=== PATIENT | female | born 1930 | race Caucasian/White ===

== ENCOUNTER 2016-10-05 08:53 | Emergency (ER) | payer MEDICARE, OTHER ==
--- NOTE | 2016-10-05 09:12 | EDM.PDOC ---
ED HPI LOWER BACK PAIN/INJURY - General Chief Complaint: Back Pain or Injury Stated Complaint: ACHES ALL OVER Time Seen by Provider: 10/05/16 09:01 Source of Information: Reports: Patient, Family, RN, RN notes reviewed History Limitations: Reports: No limitations - History of Present Illness INITIAL COMMENTS - FREE TEXT/NARRATIVE: Patient presents to the ED at [facility] with generalized body aches, with the worse in the central to lower back. Patient states she has general aches and pains, but today it seems much worse. No chest pain. No SOB. No focal neurological deficits. Patient denies any numbness, tingling, or paresthesia of any extremity. No recent falls. No N/V/D. Symptom Onset Date: 10/05/16 Timing/Duration: Reports: Waxing/waning Location: Reports: lower, midline Quality: Reports: Pressure Severity: mild Context: Reports: chronic pain/injury. Denies: lifting, bending, fall, trauma Associated Symptoms: Reports: Denies symptoms - Related Data Allergies/ADRs: Allergies Allergy/AdvReac Type Severity Reaction Status Date / Time atorvastatin calcium Allergy Cannot Verified 10/05/16 09:10 [From Lipitor] Remember Cephalosporins Allergy Cannot Verified 10/05/16 09:10 Remember fluvastatin sodium Allergy Cannot Verified 10/05/16 09:10 [From Lescol] Remember Penicillins Allergy Cannot Verified 10/05/16 09:10 Remember Home Meds: Home Meds Metoprolol Tartrate [Lopressor] 25 mg PO Q12HR 09/18/14 [History] Pravastatin Sodium 40 mg PO DAILY 09/18/14 [History] amLODIPine [Norvasc] 5 mg PO DAILY 09/18/14 [History] Aspirin 81 mg PO BID 11/05/15 [History] Carboxymethylcellulos/Glycerin [Refresh Optive Gel Eye Drops] 1 drop EYEBOTH TID 11/05/15 [History] Dimenhydrinate 50 mg PO Q4H PRN 11/05/15 [History] Ciprofloxacin [Ciprofloxacin HCl] 250 mg PO BID #10 tablet 11/06/15 [Rx] Nystatin [Nystatin Crm] 15 gm TOP BID #1 tube 11/06/15 [Rx] Potassium Citrate [Urocit-K] 10 meq PO DAILY #30 tablet.er 11/06/15 [Rx] Past Medical History HEENT History: Reports: Cataract Cardiovascular History: Reports: High cholesterol, Hypertension, CT Gastrointestinal History: Reports: Colon polyp Genitourinary History: Reports: Acute renal failure, Chronic renal insuffiency [employer]OR [employer] History: Reports: Dysfunctional uterine bleeding, Prolapsed uterus Musculoskeletal History: Reports: Arthritis Hematologic History: Reports: Anemia Oncologic (Cancer) History: Reports: Colon - Past Surgical History HEENT Surgical History: Reports: Cataract surgery Cardiovascular Surgical History: Reports: Coronary artery bypass GI Surgical History: Reports: Appendectomy Social & Family History - Tobacco Use Smoking Status *Q: Never Smoker - Alcohol Use Days Per Week of Alcohol Use: 0 - Recreational Drug Use Recreational Drug Use: No ED ROS GENERAL - Review of Systems Review Of Systems: See Below Constitutional: Denies: fever, chills, weakness Respiratory: Denies: shortness of breath, cough Cardiovascular: Denies: Chest pain, Palpitations GI/Abdominal: Denies: Abdominal pain, Diarrhea, Nausea, Vomiting Musculoskeletal: Reports: back pain, joint pain, muscle pain, muscle stiffness Skin: Reports: no symptoms Neurological: Denies: no symptoms, dizziness, headache, numbness, paresthesia, tingling ED EXAM,LOWER BACK PAIN/INJURY - Physical Exam Exam: See Below Exam Limited By: No limitations General Appearance: alert, no apparent distress Respiratory/Chest: no respiratory distress, lungs clear, normal breath sounds Cardiovascular: regular rate, rhythm GI/Abdominal: normal bowel sounds, soft, non tender, no distention Back Exam: normal inspection. No: muscle spasm, paraspinal tenderness Neurological: alert, oriented x 3 Skin Exam: Warm, Dry, Intact, Normal color, No rash Course - Vital Signs Last Recorded V/S: Last Vital Signs Temp 35.5 C 10/05/16 08:53 Pulse 55 L 10/05/16 08:53 Resp 24 H 10/05/16 08:53 BP 130/75 10/05/16 08:53 Pulse Ox 97 10/05/16 08:53 - Orders/Labs/Meds Orders: Active Orders 24 hr Category Date Time Status Chest 2V [CR] Stat Exams 10/05/16 09:13 Taken UA W/MICROSCOPIC [URIN] Stat Lab 10/05/16 09:14 Uncollected Sodium Chloride 0.9% [Normal Saline] 1,000 ml Med 10/05/16 09:30 Active IV ASDIRECTED Sodium Chloride 0.9% [Saline Flush] Med 10/05/16 09:13 Active 10 ml FLUSH ASDIRECTED PRN Peripheral IV Insertion Adult [OM.PC] Routine Oth 10/05/16 09:13 Ordered Medication Orders Sodium Chloride (Normal Saline) 1,000 mls @ 999 mls/hr IV ASDIRECTED ALEXANDREA Last Admin: 10/05/16 09:53 Dose: 999 mls/hr Sodium Chloride (Saline Flush) 10 ml FLUSH ASDIRECTED PRN PRN Reason: Keep Vein Open Labs: Laboratory Tests 10/05/16 10/05/16 10/05/16 Range/Units 09: 09:26 09:29 WBC 7.7 (4.0-10.0) x10^3/uL RBC 4.55 (4.00-5.50) x10^6/uL Hgb 14.8 (12.0-16.0) g/dL Hct 43.4 (33.0-47.0) % MCV 95.4 H (78.0-93.0) fL MCH 32.5 H (26.0-32.0) pg MCHC 34.1 (32.0-36.0) g/dL RDW Coeff of Prem 12.2 (10.0-15.0) % Plt Count 286 (130-400) x10^3/uL Neut % (Auto) 50.1 (50.0-80.0) % Lymph % (Auto) 31.6 (25.0-50.0) % [place] % (Auto) 8.1 (2.0-11.0) % Eos % (Auto) 9.5 H (0.0-4.0) % Baso % (Auto) 0.7 (0.2-1.2) % Sodium 140 (136-145) mmol/L Potassium 4.3 (3.5-5.1) mmol/L Chloride 105 (98-107) mmol/L Carbon Dioxide 26 (21-32) mmol/L BUN 19 H (7-18) mg/dL Creatinine 1.5 H (0.55-1.02) mg/dL Est Cr Clr Drug Dosing TNP Estimated GFR (MDRD) 33 Glucose 145 H (74-106) mg/dL Calcium 9.3 (8.5-10.1) mg/dL Creatine Kinase 80 (26-192) U/L Creatine Kinase Index 1.3 (0.0-4.0) % CK-MB (CK-2) 1.0 (0.0-3.6) ng/mL POC Troponin I 0.00 (0.00-0.08) ng/mL Meds: Medications Generic Name Dose Route Start Last Admin Trade Name Freq PRN Reason Stop Dose Admin Sodium Chloride 1,000 mls @ 999 mls/hr 10/05/16 09:30 10/05/16 09:53 Normal Saline IV 999 mls/hr ASDIRECTED ALEXANDREA Administration Sodium Chloride 10 ml 10/05/16 09:13 Saline Flush FLUSH ASDIRECTED PRN Keep Vein Open Discontinued Medications Generic Name Dose Route Start Last Admin Trade Name Freq PRN Reason Stop Dose Admin Ketorolac Tromethamine 30 mg 10/05/16 09:17 10/05/16 09:54 Toradol IVPUSH 10/05/16 09:18 30 mg ONETIME ONE Administration Departure - Departure Time of Disposition: 10:17 Disposition: Home, Self-Care 01 Condition: good Clinical Impression: Back pain Qualifiers: Chronicity: acute Back pain laterality: bilateral Sciatica presence: without sciatica Instructions: Back Pain, Adult Referrals: Myra Barnes DO [Primary Care Provider] - Forms: ED Department Discharge Additional Instructions: 1. Stay well hydrated and rest 2. May use Tylenol for pain 3. See your primary as symptoms warrant - Problem List Review Problem List Initiated/Reviewed/Updated: Yes - My Orders Last 24 Hours: My Active Orders 10/05/16 09:13 Chest 2V [CR] Stat Sodium Chloride 0.9% [Saline Flush] 10 ml FLUSH ASDIRECTED PRN Peripheral IV Insertion Adult [OM.PC] Routine 10/05/16 09:14 UA W/MICROSCOPIC [URIN] Stat 10/05/16 09:30 Sodium Chloride 0.9% [Normal Saline] 1,000 ml IV ASDIRECTED - Assessment/Plan Last 24 Hours: My Active Orders 10/05/16 09:13 Chest 2V [CR] Stat Sodium Chloride 0.9% [Saline Flush] 10 ml FLUSH ASDIRECTED PRN Peripheral IV Insertion Adult [OM.PC] Routine 10/05/16 09:14 UA W/MICROSCOPIC [URIN] Stat 10/05/16 09:30 Sodium Chloride 0.9% [Normal Saline] 1,000 ml IV ASDIRECTED
[2016-10-05] MEDS ORDERED: Sodium Chloride 0.9% 10 ML Syringe FLUSH PRN (09:13)
[2016-10-05 09:18] VITALS: BP 130/75
[2016-10-05] MEDS: Sodium Chloride 0.9% 1,000 ML IV SCH (09:53)
[2016-10-05] MEDS: Ketorolac 30 MG/ML SDV IVPUSH ONE (09:54)
[2016-10-05 10:02] LABS: CHLORIDE,CL 105 mmol/L (98-107); SODIUM,NA 140 mmol/L (136-145)
== END 2016-10-05 10:37 | disposition home or self-care (01) ==
LOC: VM.ED 08:53
DX: M54.5 Low back pain (principal); E78.00 Pure hypercholesterolemia, unspecified; I25.2 Old myocardial infarction; I10 Essential (primary) hypertension; Z88.8 Allergy status to other drugs, medicaments and biological substances
CPT/HCPCS: 36415; 71020; 80048; 82550; 82553; 84484; 85025; 96361; 96374; 99284; 99284-GF; J1885; J7030

== ENCOUNTER 2020-01-13 15:29 | Emergency (ER) | payer MEDICARE, OTHER ==
[2020-01-13] MEDS ORDERED: Sodium Chloride 0.9% 10 ML Syringe FLUSH PRN (15:35)
--- NOTE | 2020-01-13 15:40 | EDM.PDOC ---
ED HPI GENERAL MEDICAL PROBLEM - General Stated Complaint: WEAKNESS Time Seen by Provider: 01/13/20 15:30 Source of Information: Reports: Patient, EMS - History of Present Illness INITIAL COMMENTS - FREE TEXT/NARRATIVE: Patient comes emergency department today from home by ambulance with complaints of lower extremity weakness. She reports over the past couple of days she has had some change in the strength of her lower extremities. Today when she was trying to get up she just feels like her legs are not there and they are not able to stand her up. She has no loss or change in her bowel or bladder habits. She has not had no recent falls or traumas. No headache. No visual disturbances. No paresthesias of her upper or lower extremities. No chest pain no shortness of breath or difficulty breathing. No weakness dizziness lightheadedness. Other than the reported weakness to her lower extremities. No cough or congestion difficulty breathing or shortness of breath. No loss of taste or smell. No abdominal pain nausea or vomiting. No hematuria dysuria or urinary frequency. No recent falls or trauma to her head neck or back. She typically ambulates with a walker and that was not enough today for her to walk. - Related Data Allergies Allergy/AdvReac Type Severity Reaction Status Date / Time atorvastatin calcium Allergy Cannot Verified 01/13/20 17:30 [From Lipitor] Remember Cephalosporins Allergy Cannot Verified 01/13/20 17:30 Remember fluvastatin sodium Allergy Cannot Verified 01/13/20 17:30 [From Lescol] Remember Penicillins Allergy Cannot Verified 01/13/20 17:30 Remember Home Meds: Home Meds Metoprolol Tartrate [Lopressor] 25 mg PO Q12HR 09/18/14 [History] Pravastatin Sodium 40 mg PO DAILY 09/18/14 [History] amLODIPine [Norvasc] 5 mg PO DAILY 09/18/14 [History] Aspirin 81 mg PO BID 11/05/15 [History] Carboxymethylcellulos/Glycerin [Refresh Optive Gel Eye Drops] 1 drop EYEBOTH TID 11/05/15 [History] Dimenhydrinate 50 mg PO Q4H PRN 11/05/15 [History] Ciprofloxacin [Ciprofloxacin HCl] 250 mg PO BID #10 tablet 11/06/15 [Rx] Nystatin [Nystatin Crm] 15 gm TOP BID #1 tube 11/06/15 [Rx] Potassium Citrate [Urocit-K] 10 meq PO DAILY #30 tablet.er 11/06/15 [Rx] Past Medical History HEENT History: Reports: Cataract Cardiovascular History: Reports: High Cholesterol, Hypertension, [place] Gastrointestinal History: Reports: Colon Polyp Genitourinary History: Reports: Acute Renal Failure, Chronic Renal Insuffiency 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 ED EXAM, NEURO - Physical Exam Exam: See Below Exam Limited By: No Limitations General Appearance: Alert, WD/WN, No Apparent Distress Eye Exam: Bilateral Eye: EOMI, PERRL Ears: Normal External Exam, Normal TMs Nose: Normal Inspection Throat/Mouth: Normal Inspection, Normal Lips, Normal Voice Head Exam: Atraumatic, Normocephalic Neck: Normal Inspection, Supple, Non-Tender Respiratory/Chest: No Respiratory Distress, Lungs Clear, Normal Breath Sounds, No Accessory Muscle Use, Chest Non-Tender Cardiovascular: Normal Peripheral Pulses, Regular Rate, Rhythm, No Edema GI/Abdominal: Normal Bowel Sounds, Soft, Non-Tender (Female) Exam: Deferred Rectal (Female) Exam: Deferred Neurological: Alert, Normal Mood/Affect, Normal Dorsiflexion, CN II-XII Intact, Normal Plantar Flexion, Normal Reflexes, No Motor/Sensory Deficits, Other (NIH is 0) DTR: 2+: Bicep (R), Bicep (L), Tricep (R), Tricep (L), Patella (R), Patella (L) , Achilles (R), Achilles (L) Back Exam: Normal Inspection, Full Range of Motion Extremities: Normal Inspection, Normal Range of Motion, No Pedal Edema, Normal Capillary Refill Psychiatric: Normal Affect, Normal Mood Skin Exam: Warm, Dry, Intact, Normal Color, No Rash EKG INTERPRETATION EKG Date: 01/13/20 Time: 15:36 Rhythm: NSR Rate (Beats/Min): 86 [place]: Normal P-Wave: Present QRS: Normal ST-T: Normal QT: Normal Course - Vital Signs Last Recorded V/S: Last Vital Signs Temp 37.3 C 01/13/20 17:54 Pulse 73 01/13/20 17:54 Resp 18 01/13/20 17:54 BP 160/69 H 01/13/20 17:54 Pulse Ox 96 01/13/20 17:54 - Orders/Labs/Meds Orders: Active Orders 24 hr Category Date Time Status EKG Documentation Completion [RC] STAT Care 01/13/20 15:36 Active CULTURE BLOOD [BC] Stat Lab 01/13/20 15:40 Received CULTURE BLOOD [BC] Stat Lab 01/13/20 15:48 Received Sodium Chloride 0.9% [Saline Flush] Med 01/13/20 15:35 Active 10 ml FLUSH ASDIRECTED PRN Blood Culture x2 Reflex Set [OM.PC] Stat Oth 01/13/20 15:36 Ordered Peripheral IV Insertion Adult [OM.PC] Stat Oth 01/13/20 15:36 Ordered Medication Orders Sodium Chloride (Saline Flush) 10 ml FLUSH ASDIRECTED PRN PRN Reason: Keep Vein Open Last Admin: 01/13/20 17:29 Dose: 10 ml Labs: Laboratory Tests 01/13/20 01/13/20 01/13/20 Range/Units 15:40 15:40 15:40 WBC 8.7 (4.0-10.0) x10^3/uL RBC 4.54 (4.00-5.50) x10^6/uL Hgb 14.7 (12.0-16.0) g/dL Hct 42.5 (33.0-47.0) % MCV 93.6 H (78.0-93.0) fL MCH 32.4 H (26.0-32.0) pg MCHC 34.6 (32.0-36.0) g/dL RDW Coeff of Prem 12.1 (10.0-15.0) % Plt Count 293 (130-400) x10^3/uL Neut % (Auto) 72.1 (50.0-80.0) % Lymph % (Auto) 16.2 L (25.0-50.0) % [place] % (Auto) 9.2 (2.0-11.0) % Eos % (Auto) 2.2 (0.0-4.0) % Baso % (Auto) 0.3 (0.2-1.2) % Sodium 135 L (136-145) mmol/L Potassium 4.1 (3.5-5.1) mmol/L Chloride 98 (98-107) mmol/L Carbon Dioxide 24 (21-32) mmol/L Anion Gap 17.1 (10-20) mmol/L BUN 11 (7-18) mg/dL Creatinine 1.2 H (0.55-1.02) mg/dL Est Cr Clr Drug Dosing TNP Estimated GFR (MDRD) 42 Glucose 122 H (74-106) mg/dL Lactic Acid 1.4 (0.4-2.0) mmol/L Calcium 8.9 (8.5-10.1) mg/dL Corrected Calcium 8.98 (8.5-10.1) mg/dL Total Bilirubin 1.4 H (0.2-1.0) mg/dL AST 26 (15-37) U/L ALT 24 (14-59) U/L Alkaline Phosphatase 112 (46-116) U/L Troponin I < 0.017 (<=0.056) ng/mL C-Reactive Protein 3.7 H (<=0.9) mg/dL Total Protein 8.2 (6.4-8.2) g/dL Albumin 3.9 (3.4-5.0) g/dL Globulin 4.3 Albumin/Globulin Ratio 0.91 Urine Color (YELLOW) Urine Appearance (CLEAR) Urine pH (5.0-8.0) Ur Specific [place] Urine Protein (NEGATIVE) mg/dL Urine Glucose (UA) (NEGATIVE) mg/dL Urine Ketones (NEGATIVE) mg/dL Urine Occult Blood (NEGATIVE) Urine Nitrite (NEGATIVE) Urine Bilirubin (NEGATIVE) Urine Urobilinogen (0.2) EU/dL Ur Leukocyte Esterase (NEGATIVE) Urine RBC (NOT SEEN) /HPF Urine WBC (NOT SEEN) /HPF Ur Squamous Epith Cells (NEGATIVE) /HPF Urine Bacteria (NEGATIVE) /HPF Urine Mucus (NEGATIVE) /LPF SARS-CoV-2 RNA (RT-PCR) (NEGATIVE) 01/13/20 01/13/20 Range/Units 16:01 17:07 WBC (4.0-10.0) x10^3/uL RBC (4.00-5.50) x10^6/uL Hgb (12.0-16.0) g/dL Hct (33.0-47.0) % MCV (78.0-93.0) fL MCH (26.0-32.0) pg MCHC (32.0-36.0) g/dL RDW Coeff of Prem (10.0-15.0) % Plt Count (130-400) x10^3/uL Neut % (Auto) (50.0-80.0) % Lymph % (Auto) (25.0-50.0) % [place] % (Auto) (2.0-11.0) % Eos % (Auto) (0.0-4.0) % Baso % (Auto) (0.2-1.2) % Sodium (136-145) mmol/L Potassium (3.5-5.1) mmol/L Chloride (98-107) mmol/L Carbon Dioxide (21-32) mmol/L Anion Gap (10-20) mmol/L BUN (7-18) mg/dL Creatinine (0.55-1.02) mg/dL Est Cr Clr Drug Dosing Estimated GFR (MDRD) Glucose (74-106) mg/dL Lactic Acid (0.4-2.0) mmol/L Calcium (8.5-10.1) mg/dL Corrected Calcium (8.5-10.1) mg/dL Total Bilirubin (0.2-1.0) mg/dL AST (15-37) U/L ALT (14-59) U/L Alkaline Phosphatase (46-116) U/L Troponin I (<=0.056) ng/mL C-Reactive Protein (<=0.9) mg/dL Total Protein (6.4-8.2) g/dL Albumin (3.4-5.0) g/dL Globulin Albumin/Globulin Ratio Urine Color Yellow (YELLOW) Urine Appearance Clear (CLEAR) Urine pH 7.0 (5.0-8.0) Ur Specific [place] 1.020 Urine Protein Negative (NEGATIVE) mg/dL Urine Glucose (UA) Negative (NEGATIVE) mg/dL Urine Ketones Negative (NEGATIVE) mg/dL Urine Occult Blood Trace-intact H (NEGATIVE) Urine Nitrite Negative (NEGATIVE) Urine Bilirubin Negative (NEGATIVE) Urine Urobilinogen 0.2 (0.2) EU/dL Ur Leukocyte Esterase Negative (NEGATIVE) Urine RBC 5-10 H (NOT SEEN) /HPF Urine WBC 0-5 (NOT SEEN) /HPF Ur Squamous Epith Cells Few H (NEGATIVE) /HPF Urine Bacteria Not seen (NEGATIVE) /HPF Urine Mucus Rare H (NEGATIVE) /LPF SARS-CoV-2 RNA (RT-PCR) Negative (NEGATIVE) Meds: Medications Generic Name Dose Route Start Last Admin Trade Name Freq PRN Reason Stop Dose Admin Sodium Chloride 10 ml 01/13/20 15:35 01/13/20 17:29 Saline Flush FLUSH 10 ml ASDIRECTED PRN Administration Keep Vein Open Discontinued Medications Generic Name Dose Route Start Last Admin Trade Name Freq PRN Reason Stop Dose Admin Lactated Ringer's 1,000 mls @ 999 mls/hr 01/13/20 17:17 01/13/20 17:27 Ringers, Lactated IV 01/13/20 18:17 999 mls/hr ONETIME ONE Administration - Radiology Interpretation Free Text/Narrative:: CXR per radiology is no evidence of pneumonia or other acute findings. - Re-Assessments/Exams Free Text/Narrative Re-Assessment/Exam: 01/13/20 18:45 Chest x-ray was negative. Urinalysis is negative. Laboratory work-up is rather unremarkable as well. Blood cultures x2 are pending. Covid test negative. 500ml LR bolus started. The fluid bolus the patient relates that she really feels back to normal. She is able to stand and ambulate without any difficulty. She has no other complaints or symptomology. She also reports that she has had a couple episodes of this in the past where her legs got very weak and she was dehydrated and after receiving some IV fluid she felt much better. She is able to get up to the bathroom and voided multiple times. Really feels back to baseline. We will discharge her home with the importance of increasing her hydration. Recheck with her primary care if anything new or worse and recheck in the emergency department over the weekend if any concerns. She is comfortable this plan and her questions are answered. Departure - Departure Time of Disposition: 18:38 Disposition: Home, Self-Care 01 Clinical Impression: Weakness, Dehydration - Discharge Information Instructions: Weakness, [id number], Dehydration, Elderly, [id number] Referrals: Myra Barnes, [Primary Care Provider] - Additional Instructions: Increase fluids over the next few days. Make position changes slowly over the next few days. Use your walker for assistance. Return to the ED if new or worsening symptoms. Follow up with your PCP early next week if any continued concerns or problems. Sepsis Event Note - Focused Exam Vital Signs: Vital Signs Temp Pulse Resp BP Pulse Ox 01/13/20 17:54 37.3 C 73 18 160/69 H 96 01/13/20 17:29 37.6 C 85 18 145/67 H 94 L 01/13/20 15:49 38.4 C H 90 18 158/67 H 95 Date Exam was Performed: 01/13/20 Time Exam was Performed: 18:38 - My Orders Last 24 Hours: My Active Orders 01/13/20 15:35 Sodium Chloride 0.9% [Saline Flush] 10 ml FLUSH ASDIRECTED PRN 01/13/20 15:36 EKG Documentation Completion [RC] STAT Blood Culture x2 Reflex Set [OM.PC] Stat Peripheral IV Insertion Adult [OM.PC] Stat 01/13/20 15:40 CULTURE BLOOD [BC] Stat 01/13/20 15:48 CULTURE BLOOD [BC] Stat - Assessment/Plan Last 24 Hours: My Active Orders 01/13/20 15:35 Sodium Chloride 0.9% [Saline Flush] 10 ml FLUSH ASDIRECTED PRN 01/13/20 15:36 EKG Documentation Completion [RC] STAT Blood Culture x2 Reflex Set [OM.PC] Stat Peripheral IV Insertion Adult [OM.PC] Stat 01/13/20 15:40 CULTURE BLOOD [BC] Stat 01/13/20 15:48 CULTURE BLOOD [BC] Stat Assessment:: Weakness Dehydration Plan: Increase fluids over the next few days. Make position changes slowly over the next few days. Use your walker for assistance. Return to the ED if new or worsening symptoms. Follow up with your PCP early next week if any continued concerns or problems.
[2020-01-13 16:19] LABS: CHLORIDE,CL 98 mmol/L (98-107); SODIUM,NA 135 mmol/L (136-145)
[2020-01-13 16:41] LABS: ANION GAP 17.1 mmol/L (10-20)
--- NOTE | 2020-01-13 17:04 | CR ---
[id number] RAD/RAD Chest PA or AP 1V EXAM: RAD Chest PA or AP 1V INDICATION: FEVER. UNKNOWN WEAKNESS. COMPARISON: 2016. DISCUSSION: Median sternotomy. Cardiomediastinal silhouette is unchanged from the prior examination. No infiltrate, effusion, pneumothorax, or edema. IMPRESSION: No evidence of pneumonia or other acute findings. Henri Bright MD 01/13/20 5400 Thank you for allowing us to participate in the care of your patient.
[2020-01-13] MEDS ORDERED: Lactated Ringers 1,000 ML IV ONE (17:17)
[2020-01-13 17:55] VITALS: BP 160/69; PULSE 73
== END 2020-01-13 18:45 | disposition home or self-care (01) ==
LOC: VM.ED 15:29
DX: E86.0 Dehydration (principal); I12.9 Hypertensive chronic kidney disease with stage 1 through stage 4 chronic kidney disease, or unspecified chronic kidney disease; N18.9 Chronic kidney disease, unspecified; I25.2 Old myocardial infarction; M19.90 Unspecified osteoarthritis, unspecified site; E78.00 Pure hypercholesterolemia, unspecified; Z88.8 Allergy status to other drugs, medicaments and biological substances; Z88.1 Allergy status to other antibiotic agents; Z88.0 Allergy status to penicillin; Z79.82 Long term (current) use of aspirin; Z79.899 Other long term (current) drug therapy
CPT/HCPCS: 71045; 80053; 81001; 83605; 84484; 85025; 86140; 87040; 93005; 96360; 99285; J7120; U0002; 93010; 99284-GF